=== PATIENT | male | born 1985 | race Caucasian/White ===

== ENCOUNTER 2024-10-09 23:42 | Emergency (ER) | payer OTHER ==
[2024-10-09 23:50] VITALS: BMI 28.3
[2024-10-10 01:52] LABS: ABSOLUTE IMMATURE GRANULOCYTES 0.01 x10^3/uL (0.0-0.031); BASOPHILS # 0.04 x10^3/uL (0.01-0.08); EOSINOPHIL % 0.6 % (0.8-7.0); EOSINOPHILS # 0.05 x10^3/uL (0.04-0.54); HEMATOCRIT 44.3 % (40.1-51.0); HEMOGLOBIN 14.3 g/dL (13.7-17.5); MCHC 32.3 g/dl (32.3-36.5); MEAN CELL VOLUME 102.8 fl (79.0-92.2); MEAN PLT VOLUME 9.4 fl (9.4-12.4); MONOCYTE # 0.97 x10^3/uL (0.30-0.82); MONOCYTE % 11.2 % (5.3-12.2); PLATELET COUNT 249 x10^3/uL (163-337); RDW 13.2 % (12.0-15.6)
[2024-10-10 02:17] LABS: INR 1.19 (0.83-1.09); PROTHROMBIN TIME (PATIENT) 13.1 SEC (9.7-13.0)
[2024-10-10 02:20] LABS: ACTIVATED PTT 31.4 SECONDS (25.2-36.5)
[2024-10-10 02:21] LABS: POTASSIUM 3.6 mmol/L (3.5-5.1)
[2024-10-10 02:24] LABS: ALBUMIN 3.6 g/dl (3.4-5.0); BLOOD UREA NITROGEN 18.9 mg/dL (7-18)
[2024-10-10 02:27] LABS: CREATININE 1.1 mg/dL (0.55-1.3)
[2024-10-10 02:28] LABS: BILIRUBIN,TOTAL 0.3 mg/dL (0.2-1); TOT PROT 6.9 g/dl (6.4-8.2)
[2024-10-10] MEDS: LACTATED RINGERS SOLUTION 1,000 ML/1,000 ML INFUS.BAG IV SCH (03:41)
[2024-10-10 04:23] VITALS: BP 132/77; PULSE 102; RESP 16; TEMP 97.4
== END 2024-10-10 06:52 | disposition home or self-care (01) ==
LOC: JER 23:42
DX: R20.0 Anesthesia of skin (principal); M54.2 Cervicalgia; T40.1X2A Poisoning by heroin, intentional self-harm, initial encounter
CPT/HCPCS: 0241U-QW; 36415; 70450-TC; 70491-TC; 80053; 83605; 84484; 85025; 85610; 85730; 87040; 93005; 93010; 99283-25; Q9967